=== PATIENT | female | born 1970 | race Native Hawaiian/Other Pacific Islander ===

== ENCOUNTER 2023-01-22 15:19 | Emergency (ER) | payer OTHER, SELFPAY ==
[2023-01-22] VITALS (8 sets, daily range): BP systolic 177–203; BP diastolic 97–104; PULSE 63–75; RESP 16; TEMP 37.4; O2SAT 98–99; BMI 22.7
--- NOTE | 2023-01-22 16:10 | ED.GENADULT ---
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 Apparently has suspected high blood pressure for unspecified amount of time. Last seen in clinic in November and would note her systolic blood pressure to be around 160. Evidently was recommended to come back in 3 months. Today early this morning did have episode of nose bleed and then recurred again this early afternoon while at work; just dripping she says. Tried to stop it by rinsing it with water. Apparently has finally stopped now. She believes the right nare was most involved. Reports being hospitalized for 3 days for epistaxis many years ago in the [facility]. Currently not lightheaded or short of breath. No visual changes. There are times when her whole body with full numb she says but otherwise is been no focal weakness or paresthesias. No chest pain again no shortness of breath. Is not feeling nauseated. No headache. No hematuria. Many family members treated for hypertension Related Data Home Medications Medication Instructions Recorded Confirmed Cough (dextromethorphan) 01/22/23 Allergies Allergy/AdvReac Type Severity Reaction Status Date / Time No Known Drug Allergies Allergy Verified 01/22/23 15:28 Review of Systems Status of ROS: Reports: 10 or more systems reviewed and unremarkable except as noted in History and below PFSH PFS Social History Smoking Status: Never smoker Do you use any of these nicotine containing products: None Second hand tobacco smoke exposure: No How often do you have a drink containing alcohol: never AUDIT-C Alcohol total score: 0 Non-prescribed substance use: denies use Exam Narrative: Exam Narrative: Pleasant. NAD. Breathing easily. Cranial nerves 2-12 intact. Extraocular movements are full. Funduscopic exam looks to have healthy vasculature. I cannot appreciate papular edema. Lungs are clear. Heart with regular rate and rhythm. Does have a 2/6 systolic murmur at the right sternal border. Not sure that radiates into the carotids. (apparently this murmur is not new though it is unclear what degree of investigation is occurred.) Extremities are well perfused without edema. Abdomen soft. Skin warm and dry. Oropharynx there is some trace residual blood in posterior oropharynx without apparently active bleed. There is dried blood in the right nares more than the left. Some irritated tissue actually in the outer aspect here. In the left near ease there is a rather prominent vasculature also on the outer aspect. Looks to have been recently bleeding here. Const: Vital Signs, click to edit/add: Vital Signs - 24 hr 01/22/23 15:30 01/22/23 15:47 01/22/23 15:51 Temperature 99.4 F Pulse Rate 63 71 Pulse Rate [Right Pulse Oximeter] 64 Respiratory Rate 16 Blood Pressure 189/104 H Blood Pressure [Le ft Upper Arm] 203/100 H Pulse Oximetry 99 99 99 Oxygen Delivery Me thod Room Air Room Air 01/22/23 15:52 01/22/23 16:00 01/22/23 16:01 Temperature Pulse Rate 75 72 68 Pulse Rate [Right Pulse Oximeter] Respiratory Rate Blood Pressure 177/98 H Blood Pressure [Le ft Upper Arm] Pulse Oximetry 99 99 98 Oxygen Delivery Me thod Room Air 01/22/23 16:15 01/22/23 16:31 Temperature Pulse Rate 73 Pulse Rate [Right Pulse Oximeter] Respiratory Rate Blood Pressure 184/97 H Blood Pressure [Le ft Upper Arm] Pulse Oximetry 99 Oxygen Delivery Me thod Documenting provider has reviewed patient's vital signs: yes Course Vital Signs Vital signs: Initial Vital Signs Temperature 99.4 F 01/22/23 15:30 Temperature Source Temporal Artery Scan 01/22/23 15:30 Pulse Rate 64 01/22/23 15:30 Pulse Rhythm 01/22/23 15:30 Respiratory Rate 16 01/22/23 15:30 Blood Pressure 203/100 H 01/22/23 15:30 Blood Pressure Mean 134 01/22/23 15:30 Blood Pressure Position Sitting 01/22/23 15:30 Pulse Oximetry 99 01/22/23 15:30 Oxygen Delivery Method 01/22/23 15:30 Vital Signs Temperature 99.4 F 01/22/23 15:30 Pulse Rate 64 01/22/23 15:30 Respiratory Rate 16 01/22/23 15:30 Blood Pressure 203/100 H 01/22/23 15:30 Pulse Oximetry 99 01/22/23 15:30 Oxygen Delivery Method 01/22/23 15:30 Temperature 99.4 F 01/22/23 15:30 Pulse Rate 73 01/22/23 16:15 Respiratory Rate 16 01/22/23 15:30 Blood Pressure 184/97 H 01/22/23 16:31 Pulse Oximetry 99 01/22/23 16:15 Oxygen Delivery Method 01/22/23 15:52 Medical Decision Making MDM Narrative Medical decision making narrative: Does not appear to require intervention at the moment for epistaxis. I did offer though cautery if she wanted. Otherwise we discussed better home management. I did dispense a tube of white petroleum jelly as well. Presumably it is uncontrolled blood pressure that is partly contributing to her nosebleeds. Discussed treatment also of this elevated blood pressure. Recheck later blood pressure 177 over upper 90s. Still otherwise asymptomatic. I think treatment is inevitable. Discussed that I think can follow up in clinic for this as otherwise seems well. Offered also initial lab evaluation here to facilitate cares on down the road. Would like her seen at least within 2 weeks. After discussion decided to draw initial lab work with clinic follow-up and not initiate treatment here today. EKG reviewed by me shows normal sinus at 65. I do not appreciate any evidence strain. Labs were pending at time of departure. Unremarkable except for 3+ blood in urine ---was able to confirm that currently menstruating. Will need close follow-up, possibly repeat urinalysis and anticipate treating for hypertension. See patient discharge plan Lab Data Lab results reviewed: Yes I reviewed the patient's lab results Labs: Lab Results 01/22/23 01/22/23 01/22/23 Range/Units 16:32 16:32 16:44 WBC 8.08 (4.50-11.00) K/uL RBC 4.31 (4.00-5.20) m/uL Hgb 13.2 (12.0-16.0) gm/dL Hct 38.1 (33.0-51.0) % MCV 88 (80-100) fL MCH 31 (26-34) pg MCHC 35 (32-36) gm/dL RDW Coeff of Stephie 12.0 (11.5-15.5) % Plt Count 354 (140-440) K/uL Neut % (Auto) 50.4 (42.0-72.0) % Lymph % (Auto) 41.5 (20-44) % [place] % (Auto) 4.5 (0.0-11.0) % Eos % (Auto) 2.8 (0.0-7.0) % Baso % (Auto) 0.4 (0.0-3.0) % Neut # (Auto) 4.08 (1.7-7.0) K/uL Lymph # (Auto) 3.35 H (0.90-2.90) K/uL [place] # (Auto) 0.40 (0.00-0.90) K/UL Eos # (Auto) 0.23 (0.00-0.50) K/uL Baso # (Auto) 0.03 (0.00-0.30) K/uL Sodium 139 (135-149) mmol/L Potassium 3.6 (3.6-5.1) mmol/L Chloride 108 (96-114) mmol/L Carbon Dioxide 24 (20-32) mmol/L BUN 12 (7-30) mg/dL Creatinine 0.4 L (0.5-1.5) mg/dL Estimated Creat Clear 120.89 Estimated GFR 118 ml/min Glucose 93 (60-115) mg/dL Calcium 8.7 (8.4-10.6) mg/dL Total Bilirubin 0.3 (0.1-1.5) mg/dL Direct Bilirubin 0.2 (0.0-0.5) mg/dL AST 25 (12-35) U/L ALT 19 (4-35) U/L Alkaline Phosphatase 96 (40-150) U/L Troponin I < 0.01 L (0.01-0.04) ng/mL Total Protein 7.4 (6.0-8.3) g/dL Albumin 4.2 (3.3-5.0) g/dL Urine Color Yellow (Yellow) Urine Appearance Cloudy A (Clear) Urine pH 6.0 (5.0-8.5) Ur Specific [place] 1.020 (1.000-1.030) Urine Protein Negative (Negative) Urine Glucose (UA) Negative (Negative) Urine Ketones Negative (Negative) Urine Blood 3+ A (Negative) Urine Nitrite Negative (Negative) Urine Bilirubin Negative (Negative) Urine Urobilinogen 0.2 (0.2-1.0) Ur Leukocyte Esterase Negative (Negative) Urine RBC 25-50 A (0-2) Urine WBC 0-2 (0-5) Ur Squamous Epith Cells Few (None-Few) Urine Bacteria Few A (None) Discharge Plan Discharge Clinical Impression: Epistaxis, Heart murmur, Hypertension, Hypertensive urgency Patient Disposition: Home w/ Parent or Adult Condition: Improved Additional Instructions: Please call as soon as possible to get a primary care appointment either with [facility] or with [facility]. I would try to get this appointment within the next week or at least within the next 2 weeks. These labs we are collecting today will be a baseline for you and can be referenced on follow-up. I will call you if there is any immediate action that needs to be taken with regard to your labs. At your follow-up I would anticipate your provider reviewing her past medical and these labs. Likely initiating a blood pressure medication at this point. Hydrochlorothiazide or chlorthalidone is often one that is 1st used. Regarding your nose bleed--- I would work toward better control of your blood pressure. Sleep under the mist of a cool mist humidifier. Place the white petroleum jelly into your nose a few times daily to keep moist at least until or more clearly out of winter. Definitely place before bed. If you start bleeding again, place small cotton balls as noted. May want to spray into your nose or partially soak cotton balls with oxymetazoline nasal spray. Can then clamp with nose clamp as provided. If continuing to bleed heavily, becoming lightheaded or short of breath or bleeding not controlled within an hour, please return to the emergency department. Prescriptions: No Action Cough (dextromethorphan) Follow Up/Referrals: Jett Barker MD [Primary Care Provider] - Stand Alone Forms: [employer] Info Instructions
[2023-01-22 16:41] LABS: Basophils Absolute Auto 0.03 K/uL (0.00-0.30); Basophils Percent Auto 0.4 % (0.0-3.0); Eosinophils Absolute Auto 0.23 K/uL (0.00-0.50); Eosinophils Percent Auto 2.8 % (0.0-7.0); Hematocrit 38.1 % (33.0-51.0); Hemoglobin* 13.2 gm/dL (12.0-16.0); Immature Granulocytes Abs Auto 0.03 K/uL (0.00-0.30); Immature Granulocytes Pct Auto 0.4 %; Lymphocytes Absolute Auto 3.35 K/uL (0.90-2.90); Lymphocytes Percent Auto 41.5 % (20-44); Mean Corpuscular HGB Conc 35 gm/dL (32-36); Mean Corpuscular Hemoglobin 31 pg (26-34); Mean Corpuscular Volume 88 fL (80-100); Monocytes Percent Auto 4.5 % (0.0-11.0); Neutrophils Absolute Auto 4.08 K/uL (1.7-7.0); Neutrophils Percent Auto 50.4 % (42.0-72.0); Platelet Count* 354 K/uL (140-440); Red Blood Count 4.31 m/uL (4.00-5.20); Slide Review Reflex No; White Blood Count* 8.08 K/uL (4.50-11.00)
[2023-01-22 16:52] LABS: Albumin* 4.2 g/dL (3.3-5.0); Chloride* 108 mmol/L (96-114); Sodium* 139 mmol/L (135-149)
[2023-01-22 16:53] LABS: Appearance Urine Cloudy (Clear); Bilirubin Urine Negative (Negative); Blood Urine 3+ (Negative); Color Urine Yellow (Yellow); Glucose Urine Negative (Negative); Ketones Urine Negative (Negative); Leukocyte Esterase Urine Negative (Negative); Nitrite Urine Negative (Negative); Protein Urine Negative (Negative); Urobilinogen Urine 0.2 (0.2-1.0)
[2023-01-22 16:53] LABS: Potassium* 3.6 mmol/L (3.6-5.1)
[2023-01-22 16:55] LABS: Alanine Aminotransferase* 19 U/L (4-35); Alkaline Phosphatase* 96 U/L (40-150); Aspartate Amino Transferase* 25 U/L (12-35); Bilirubin Direct* 0.2 mg/dL (0.0-0.5); Bilirubin Total* 0.3 mg/dL (0.1-1.5); Blood Urea Nitrogen* 12 mg/dL (7-30); Calcium* 8.7 mg/dL (8.4-10.6); Carbon Dioxide* 24 mmol/L (20-32); Creatinine* 0.4 mg/dL (0.5-1.5); Est. Creatinine Clearance* 120.89; Estimated Glomerular Filt Rate 118 ml/min; Glucose* 93 mg/dL (60-115); Total Protein* 7.4 g/dL (6.0-8.3)
[2023-01-22 17:08] LABS: Troponin I* < 0.01 ng/mL (0.01-0.04)
[2023-01-22 17:18] LABS: Bacteria Urine Few; RBC Urine 25-50 (0-2); Squamous Epithelial Cell Urine Few (None-Few); WBC Urine 0-2 (0-5)
== END 2023-01-22 16:51 | disposition home or self-care (01) ==
LOC: ED 16:46
PROVIDERS: Emergency Provider Family Medicine; PCP Family Medicine
DX: R04.0 Epistaxis (principal); R01.1 Cardiac murmur, unspecified; I16.0 Hypertensive urgency
CPT/HCPCS: 36415; 80048; 80076; 81001; 84484; 85025; 87086; 87186; 93005; 99284

== ENCOUNTER 2023-01-23 06:42 | Emergency (ER) | payer OTHER, SELFPAY ==
[2023-01-23 06:47] VITALS: BP 174/94; PULSE 76; RESP 18; TEMP 36.7; O2SAT 98
--- NOTE | 2023-01-23 07:13 | ED_ITS ---
History of Present Illness General Chief Complaint: Epistaxis/Nosebleed Stated Complaint: Nosebleed Time Seen by Provider: 01/23/23 06:59 History of Present Illness HPI Narrative: Pt is a 52 year old woman who presents with right sided epistaxis. Pt was seen last night after an episode of epistaxis which did not require treatment. Pt states that she did well until 2 hours ago when her right nostril began bleeding again. Pt has no pain. She feels like she is swallowing some blood as well. Pt has no chest pain or shortness of breath. She takes no anti-platelet agents or coumadin. Pt has had epistaixis in the past but those episodes generally did not require treatment. No other complaints at this time. Related Data Home Medications Medication Instructions Recorded Confirmed Cough (dextromethorphan) 01/22/23 Allergies Allergy/AdvReac Type Severity Reaction Status Date / Time No Known Drug Allergies Allergy Verified 01/22/23 15:28 Review of Systems Status of ROS: Reports: 10 or more systems reviewed and unremarkable except as noted in History and below [facility] Medical History (Updated 01/23/23 @ 07:23 by Huan Campbell MD) Hypertension Social History Smoking Status: Never smoker Do you use any of these nicotine containing products: None Second hand tobacco smoke exposure: No How often do you have a drink containing alcohol: never AUDIT-C Alcohol total score: 0 Non-prescribed substance use: denies use Exam Narrative: Exam Narrative: EXAM GENERAL: Patient appears comfortable and well. EYES: No scleral icterus. ENT: Nasal erythema noted with small amount of blood present in the right nostril THYROID: no thyroid nodules or thyromegaly. LYMPH: No supraclavicular or cervical lymphadenopathy. SKIN: Visible skin seen during exam normal or with benign process only. EXT: No dependent lower extremity pedal edema. HEART: Regular rate and rhythm with no murmurs, rubs, or gallops. LUNGS: Clear to auscultation bilaterally with no crackles or wheezes. ABD: Soft, non tender, non distended. PSYCH: Good eye contact, speech is not pressured. Const: Vital Signs, click to edit/add: Vital Signs - 24 hr 01/23/23 06:47 Temperature 98.0 F Pulse Rate [Left P ulse Oximeter] 76 Respiratory Rate 18 Blood Pressure [Le ft Upper Arm] 174/94 H Pulse Oximetry 98 Oxygen Delivery Me thod Room Air Course Course Hospital Course: Right nostril packed with aftrin soaked cotton ball with good hemostasis. Vital Signs Vital signs: Initial Vital Signs Temperature 98.0 F 01/23/23 06:47 Temperature Source Temporal Artery Scan 01/23/23 06:47 Pulse Rate 76 01/23/23 06:47 Pulse Rhythm 01/23/23 06:47 Respiratory Rate 18 01/23/23 06:47 Blood Pressure 174/94 H 01/23/23 06:47 Blood Pressure Mean 120 01/23/23 06:47 Blood Pressure Position Sitting 01/23/23 06:47 Pulse Oximetry 98 01/23/23 06:47 Oxygen Delivery Method 01/23/23 06:47 Vital Signs Temperature 98.0 F 01/23/23 06:47 Pulse Rate 76 01/23/23 06:47 Respiratory Rate 18 01/23/23 06:47 Blood Pressure 174/94 H 01/23/23 06:47 Pulse Oximetry 98 01/23/23 06:47 Oxygen Delivery Method 01/23/23 06:47 Temperature 98.0 F 01/23/23 06:47 Pulse Rate 76 01/23/23 06:47 Respiratory Rate 18 01/23/23 06:47 Blood Pressure 174/94 H 01/23/23 06:47 Pulse Oximetry 98 01/23/23 06:47 Oxygen Delivery Method 01/23/23 06:47 MDM - Epistaxis MDM Narrative Medical decision making narrative: Pt is a 52 year old who presents with epistaxis. Pt bleeding controlled with afrin soaked cotton ball with good hemostasis. Pt will change the packing with similar every 4 hours over the weekend until no blood is present on the cotton ball. Pt will follow up Wednesday in the office to discuss chronic hypertension. Pt does not have a primary so is given my card. Differential Diagnosis Differential diagnosis: Likely nasal bone fracture, anterior epistaxis and posterior epistaxis Discharge Plan Discharge Clinical Impression: Epistaxis Condition: Stable Instructions: Nosebleed (ED) Additional Instructions: Change afrin soaked cotton ball every 4 hours until no blood is present on the cotton ball Follow up on Wednesday as discussed. Activity Level: No Restrictions Discharge Diet: Regular Prescriptions: No Action Cough (dextromethorphan) Follow Up/Referrals: Jett Barker MD [Primary Care Provider] - Stand Alone Forms: [employer] Info Instructions
[2023-01-23] MEDS: OXYMETAZOLINE 0.05% NASAL SPRAY 1 SPRAY NOSTRIL-R (07:31)
== END 2023-01-23 07:31 | disposition home or self-care (01) ==
PROVIDERS: Emergency Provider Internal Medicine; PCP Family Medicine
DX: R04.0 Epistaxis (principal)
CPT/HCPCS: 99282; 99283

== ENCOUNTER 2023-01-23 09:11 | Emergency (ER) | payer OTHER, SELFPAY ==
[2023-01-23 09:16] VITALS: BP 182/93; PULSE 73; RESP 20; TEMP 36.6; O2SAT 98; BMI 22.7
--- NOTE | 2023-01-23 10:17 | ED.GENADULT ---
HPI - General Adult General Time Seen by Provider: 10:17 Date Seen: 01/23/23 Chief complaint: Epistaxis/Nosebleed Stated complaint: nosebleed Time Seen by Provider: 01/23/23 09:21 Source: patient Mode of arrival: ambulatory Limitations: no limitations History of Present Illness HPI narrative: Patient is a 52-year-old female without history of bleeding disorder or clotting problems, who has had nosebleeds in the past presents for recurrent nosebleed. She was seen a couple of times over in the night with elevated blood pressure and was asked use Afrin soaked cotton balls. She did not have cautery by chart report, did not have any nasal pack placed. Patient reports this morning she had good amount of bleeding she is concerned about this is questioning if she needs to be admitted or not. She has occasional lightheadedness. Blood pressure is still elevated her pulse is 73 O2 sat is excellent at 90%. She has got a history of hypertension. Related Data Home Medications Medication Instructions Recorded Confirmed Cough (dextromethorphan) 01/22/23 Previous Rx's Medication Instructions Recorded cephalexin 500 mg capsule 500 mg PO BID #10 caps 01/23/23 Allergies Allergy/AdvReac Type Severity Reaction Status Date / Time No Known Drug Allergies Allergy Verified 01/22/23 15:28 Review of Systems Status of ROS: Reports: 6 or more systems reviewed and unremarkable except as noted in History and below [facility] Medical History Hypertension Social History Smoking Status: Never smoker Do you use any of these nicotine containing products: None Second hand tobacco smoke exposure: No How often do you have a drink containing alcohol: never AUDIT-C Alcohol total score: 0 Non-prescribed substance use: denies use Exam Narrative: Exam Narrative: Objective: The patient is anxious but in no distress no cyanosis O2 sat excellent HEENT shows left nasal mucosa clear right nostril shows friable septal mucosa. Small amount of clotted blood noted on the septum. Mouth is clear no evidence of bleeding posteriorly, although the patient stated she has swallowed blood a couple of times. Const: Vital Signs, click to edit/add: Vital Signs - 24 hr 01/23/23 09:16 01/23/23 12:46 Temperature 97.8 F 97.6 F Pulse Rate [Pulse Oximeter] 73 98 Respiratory Rate 20 16 Blood Pressure [Le ft Upper Arm] 182/93 H 179/108 H Pulse Oximetry 98 Oxygen Delivery Me thod Room Air Course Vital Signs Vital signs: Initial Vital Signs Temperature 97.8 F 01/23/23 09:16 Temperature Source Temporal Artery Scan 01/23/23 09:16 Pulse Rate 73 01/23/23 09:16 Respiratory Rate 20 01/23/23 09:16 Blood Pressure 182/93 H 01/23/23 09:16 Blood Pressure Mean 122 01/23/23 09:16 Blood Pressure Position Sitting 01/23/23 09:16 Pulse Oximetry 98 01/23/23 09:16 Oxygen Delivery Method 01/23/23 09:16 Vital Signs Temperature 97.8 F 01/23/23 09:16 Pulse Rate 73 01/23/23 09:16 Respiratory Rate 20 01/23/23 09:16 Blood Pressure 182/93 H 01/23/23 09:16 Pulse Oximetry 98 01/23/23 09:16 Oxygen Delivery Method 01/23/23 09:16 Temperature 97.6 F 01/23/23 12:46 Pulse Rate 98 01/23/23 12:46 Respiratory Rate 16 01/23/23 12:46 Blood Pressure 179/108 H 01/23/23 12:46 Pulse Oximetry 98 01/23/23 09:16 Oxygen Delivery Method 01/23/23 09:16 Medical Decision Making MDM Narrative Medical decision making narrative: Patient is a 52-year-old female with elevated blood pressure appears untreated with epistaxis. At this point I do not think she has had aggressive treatment for the nasal bleeding and would place a rhino rocket and sprayed with Afrin this was accomplished quite easily. The patient actually tolerated pretty well. She did appear to have any more anterior posterior bleeding. She is able to drink water will observe her for a period time in the ED. Will check her CBC and Chem panel to make sure there is no abnormalities. Disposition pending her findings after an observation period. Addendum: Patient has no further bleeding and feels ready to go, her labs are reassuring, should be on Keflex b.i.d. x5 days, follow-up in the clinic in 2 days for rhino rocket removal. Return to ED sooner problems or concerns. Lab Data Labs: Lab Results 01/23/23 01/23/23 Range/Units 10:20 10:20 WBC 7.84 (4.50-11.00) K/uL RBC 4.81 (4.00-5.20) m/uL Hgb 14.7 (12.0-16.0) gm/dL Hct 42.3 (33.0-51.0) % MCV 88 (80-100) fL MCH 31 (26-34) pg MCHC 35 (32-36) gm/dL RDW Coeff of Stephie 11.9 (11.5-15.5) % Plt Count 352 (140-440) K/uL Neut % (Auto) 60.0 (42.0-72.0) % Lymph % (Auto) 32.9 (20-44) % [place] % (Auto) 4.6 (0.0-11.0) % Eos % (Auto) 1.9 (0.0-7.0) % Baso % (Auto) 0.5 (0.0-3.0) % Neut # (Auto) 4.70 (1.7-7.0) K/uL Lymph # (Auto) 2.58 (0.90-2.90) K/uL [place] # (Auto) 0.40 (0.00-0.90) K/UL Eos # (Auto) 0.15 (0.00-0.50) K/uL Baso # (Auto) 0.04 (0.00-0.30) K/uL Sodium 138 (135-149) mmol/L Potassium 3.5 L (3.6-5.1) mmol/L Chloride 108 (96-114) mmol/L Carbon Dioxide 23 (20-32) mmol/L BUN 13 (7-30) mg/dL Creatinine 0.4 L (0.5-1.5) mg/dL Estimated Creat Clear 120.89 Estimated GFR 118 ml/min Glucose 96 (60-115) mg/dL Calcium 9.0 (8.4-10.6) mg/dL Discharge Plan Discharge Clinical Impression: Right-sided epistaxis Patient Disposition: Home w/ Parent or Adult Condition: Improved Additional Instructions: Light activity, off work for 2 days, Keflex 500 b.i.d. x5 days, rhino rocket removal in 2 days at clinic. Return to ED sooner problems concerns worsening, light activity, fluids, diet as tolerated Activity Level: Light activity Discharge Diet: Regular Prescriptions: New cephalexin 500 mg capsule 500 mg PO BID Qty: 10 0RF No Action Cough (dextromethorphan) Follow Up/Referrals: Jett Barker MD [Primary Care Provider] - Stand Alone Forms: [employer] Info Instructions
[2023-01-23 10:36] LABS: Basophils Absolute Auto 0.04 K/uL (0.00-0.30); Basophils Percent Auto 0.5 % (0.0-3.0); Eosinophils Absolute Auto 0.15 K/uL (0.00-0.50); Eosinophils Percent Auto 1.9 % (0.0-7.0); Hematocrit 42.3 % (33.0-51.0); Hemoglobin* 14.7 gm/dL (12.0-16.0); Immature Granulocytes Abs Auto 0.01 K/uL (0.00-0.30); Immature Granulocytes Pct Auto 0.1 %; Lymphocytes Absolute Auto 2.58 K/uL (0.90-2.90); Lymphocytes Percent Auto 32.9 % (20-44); Mean Corpuscular HGB Conc 35 gm/dL (32-36); Mean Corpuscular Hemoglobin 31 pg (26-34); Mean Corpuscular Volume 88 fL (80-100); Monocytes Percent Auto 4.6 % (0.0-11.0); Platelet Count* 352 K/uL (140-440); RDW Coefficient of Variation % 11.9 % (11.5-15.5); Red Blood Count 4.81 m/uL (4.00-5.20); White Blood Count* 7.84 K/uL (4.50-11.00)
[2023-01-23 10:38] LABS: Chloride* 108 mmol/L (96-114); Sodium* 138 mmol/L (135-149)
[2023-01-23 10:39] LABS: Potassium* 3.5 mmol/L (3.6-5.1)
[2023-01-23 10:41] LABS: Carbon Dioxide* 23 mmol/L (20-32); Creatinine* 0.4 mg/dL (0.5-1.5); Est. Creatinine Clearance* 120.89; Estimated Glomerular Filt Rate 118 ml/min
[2023-01-23 10:42] LABS: Blood Urea Nitrogen* 13 mg/dL (7-30); Glucose* 96 mg/dL (60-115)
[2023-01-23 10:43] LABS: Slide Review Reflex No
[2023-01-23] MEDS: cephALEXin 500 MG CAPSULE PO (11:48)
--- NOTE | 2023-01-23 11:59 | ED.NURSE ---
Nasal sling in place. Extra gauze provided to Pt.
[2023-01-23 12:46] VITALS: BP 179/108; PULSE 98; RESP 16; TEMP 36.4
== END 2023-01-23 13:05 | disposition home or self-care (01) ==
PROVIDERS: Emergency Provider Family Medicine; PCP Family Medicine
DX: R04.0 Epistaxis (principal)
CPT/HCPCS: 30901; 36415; 80048; 85025; 99284; A9270

== ENCOUNTER 2024-12-12 13:45 | Outpatient (RCR) | payer BC, OTHER, SELFPAY | END 2024-12-12 14:40 | disposition home or self-care (01) | PROVIDERS: PCP Family Medicine; Visit Provider Student in an Organized Health Care Education/Training Program | DX: M25.562 Pain in left knee (principal); M25.662 Stiffness of left knee, not elsewhere classified; Z74.09 Other reduced mobility; R26.2 Difficulty in walking, not elsewhere classified; Z51.89 Encounter for other specified aftercare | CPT/HCPCS: 97110; 97140; 97161 ==